=== PATIENT | male | born 1995 | race African-American/Black ===

== ENCOUNTER 2022-08-27 02:41 | Emergency (ER) | payer OTHER ==
[2022-08-27] MEDS ORDERED: Morphine 10 MG/ML VIAL ONE (03:42)
== END 2022-08-27 04:38 | disposition home or self-care (01) ==
LOC: CSHERS 02:41
DX: J32.0 Chronic maxillary sinusitis (principal); I10 Essential (primary) hypertension; F17.210 Nicotine dependence, cigarettes, uncomplicated
CPT/HCPCS: 96372; 99283; J2270

== ENCOUNTER 2022-09-10 13:40 | Emergency (ER) | payer OTHER ==
[~2022-09-10 13:40] MED LIST: Iopamidol 300 61% 100 ML VIAL FS ONE
[2022-09-10] MEDS ORDERED: Dexamethasone 10 MG/ML VIAL ONE (15:27)
[2022-09-10] MEDS ORDERED: Ketorolac Tromethamine 30 MG/ML VIAL ONE (15:27)
== END 2022-09-10 17:12 | disposition home or self-care (01) ==
LOC: CSHERS 13:40
DX: J01.90 Acute sinusitis, unspecified (principal); I10 Essential (primary) hypertension
CPT/HCPCS: 70487; 96374; 96375; J1100; J1885; Q9967